=== PATIENT | female | born 1975 | race Two or more races ===

== ENCOUNTER 2023-06-16 15:28 | Emergency (ER) | payer MEDICAID, OTHER ==
[~2023-06-16] VITALS: Ht 165.1 cm; Wt 90.1 kg
[2023-06-16 16:56] VITALS: BP 132/80; PULSE 98; RESP 18; O2SAT 97
[2023-06-16] MEDS ORDERED: ACETAMINOPHEN 500 MG TAB PO ONE (17:00)
[2023-06-16] MEDS ORDERED: IBUP-1456 PO (17:45)
[2023-06-16] MEDS ORDERED: METH-1182 PO (17:45)
== END 2023-06-16 17:49 | disposition home or self-care (01) ==
LOC: ER 15:28
DX: S39.012A Strain of muscle, fascia and tendon of lower back, initial encounter (principal); S50.12XA Contusion of left forearm, initial encounter; Z88.0 Allergy status to penicillin; Z79.1 Long term (current) use of non-steroidal anti-inflammatories (NSAID); Z79.899 Other long term (current) drug therapy; V89.2XXA Person injured in unspecified motor-vehicle accident, traffic, initial encounter; Y93.I9 Activity, other involving external motion; Y92.89 Other specified places as the place of occurrence of the external cause; Y99.8 Other external cause status
CPT/HCPCS: 72100; 73090